=== PATIENT | female | born 1950 | race Caucasian/White ===

== ENCOUNTER 2019-10-14 22:15 | Emergency (ER) | payer OTHER ==
[~2019-10-14] VITALS: Ht 160 cm; Wt 63.5 kg
[~2019-10-14 22:15] MED LIST: ADULT ASPIRIN81 MG; AMLODIPINE-BENA1 CAP; CATAPRES0.2 MG; DORZOLAMIDE HCL10 ML; GLIPIZIDE10 MG; KETO10TA2 PO; LUMIGAN2.5 M1; METFORMIN HCL500 MG; NIFEDIPINE ER30 MG; SYNTHROID50 MCG; TOPROL XL50 MG; ZOCOR20 MG
[2019-10-15] MEDS ORDERED: ULTRACET PO (04:25)
== END 2019-10-15 04:28 | disposition home or self-care (01) ==
LOC: ER 22:15
DX: S42.292A Other displaced fracture of upper end of left humerus, initial encounter for closed fracture (principal); W18.39XA Other fall on same level, initial encounter; Y93.89 Activity, other specified; Y92.098 Other place in other non-institutional residence as the place of occurrence of the external cause; Y99.8 Other external cause status